=== PATIENT | male | born 1990 | race Caucasian/White ===

== ENCOUNTER → 2021-05-21 07:54 | Outpatient (BNVA) | payer BC, SELFPAY | PROVIDERS: PCP Family Medicine; Visit Provider Family Medicine | DX: Z13.220 Encounter for screening for lipoid disorders (principal); F41.0 Panic disorder [episodic paroxysmal anxiety]; Z13.6 Encounter for screening for cardiovascular disorders; F41.1 Generalized anxiety disorder; M94.0 Chondrocostal junction syndrome [Tietze]; Z76.89 Persons encountering health services in other specified circumstances | CPT/HCPCS: 80053; 80061; 84443; 85025 ==

== ENCOUNTER 2022-06-13 21:40 | Emergency (ER) | payer BC, SELFPAY ==
--- NOTE | 2022-06-13 21:41 | XRR_ITS ---
PROCEDURE INFORMATION: Exam: XR Chest Exam date and time: 06/13/2022 9:51 PM Age: 31 years old Clinical indication: Pain; Other: Arrhythmia; Additional info: Cp, m arrhythmia TECHNIQUE: Imaging protocol: Radiologic exam of the chest. Views: 1 view. COMPARISON: No relevant prior studies available. FINDINGS: Lungs: No consolidation. Pleural spaces: No pleural effusion. No pneumothorax. Heart/Mediastinum: No cardiomegaly. Bones/joints: Unremarkable. XR/XR chest 1V portable [id number] IMPRESSION: No acute abnormality demonstrated.
--- NOTE | 2022-06-13 21:42 | ECG_ITS ---
[facility] Test Date: 2022-06-13 Pat Name: Edmond Bradley Department: Room: Gender: Male Plant Operator: : 1990 Requested By: Blanca Diaz Order Number: [id number] Yolie MD: Jose Hansen M.D. Measurements Intervals [place] Rate: 91 P: 68 [place]: 166 QRS: 89 QRSD: 97 T: 42 QT: 330 QTc: 406 Interpretive Statements SINUS RHYTHM WITH SINUS ARRHYTHMIA No previous ECG available for comparison Electronically Signed On 06-14-2022 18:15:52 GAMEROOM TECHNICIAN by Jose Hansen M.D. [id number]
[2022-06-13 21:49] VITALS: BP 154/89; PULSE 74; RESP 16; TEMP 36.8; O2SAT 98; BMI 38.4
[2022-06-14 00:14] LABS: Basophils # 0.1 10^3/uL (0.0-0.1); Basophils % 0.6 %; Eosinophils # 0.1 10^3/uL (0.0-0.8); Eosinophils % 0.5 %; Hematocrit 43.4 % (42.0-52.0); Hemoglobin 14.1 g/dL (11.7-16.6); Lymphocytes # 1.6 10^3/uL (0.8-4.8); Lymphocytes % 16.6 %; Mean Corpuscular HGB Conc 32.5 g/dL (30.0-36.0); Mean Corpuscular Hemoglobin 27.6 pg (28.0-34.0); Mean Corpuscular Volume 85.1 fl (80-94); Mean Platelet Volume 9.8 fL (7.4-10.4); Monocytes # 0.8 10^3/uL (0.2-0.9); Monocytes % 8.1 %; Neutrophils # 6.97 10^3/uL (1.8-7.7); Neutrophils % 73.8 %; Nucleated Red Blood Cells % 0 %; Platelet Count 302 10^3/cmm (130-400); Red Cell Distribution Width 12.4 % (12.1-15.1); White Blood Count 9.5 10^3/uL (4.0-10.0)
[2022-06-14 00:19] LABS: Troponin(5th) Baseline 6 ng/L (0-15)
[2022-06-14 00:24] LABS: Alanine Aminotransferase 22 U/L (0-41); Albumin Level 4.4 g/dL (3.5-5.2); Alkaline Phosphatase 67 U/L (40-130); Anion Gap 12.3 (5-19); Aspartate Amino Transferase 15 U/L (0-40); Blood Urea Nitrogen 11 mg/dL (6-20); Calcium 9.4 mg/dL (8.5-10.5); Carbon Dioxide 30 mmol/L (22-29); Chloride 101 mmol/L (98-107); Globulin 2.3 g/dL (1.3-4.6); Glomerular Filtration Rate 112.8 mL/min (90-130); Glucose 92 mg/dL (65-115); Osmolality Calculated 287 mOsm/kg (285-295); Potassium 4.3 mmol/L (3.5-5.1); Sodium 139 mmol/L (136-145); Total Bilirubin 0.2 mg/dL (0.15-1.2); Total Protein 6.7 g/dL (6.6-8.7)
--- NOTE | 2022-06-14 00:32 | W.ED.ANXIETY ---
HPI - Anxiety General: Chief Complaint: Anxiety Stated Complaint: heart palpitations/arrhythmia Time Seen by Provider: 06/13/22 23:18 History of Present Illness: Patient is a 31-year-old male who comes to the ED with palpitations. Patient has a history of anxiety. 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 He has been trying to get back quick so he has not slept much over the past several days. Today he started having episodes of what he describes as heart palpitations. They are brief and only lasted a second or 2. He notices them when he starts getting sleepy or gets close to falling asleep. Denies any chest pain, back pain, arm pain or shortness of breath. He denies any recent energy drinks or caffeinated beverages. Endorses having anxiety currently. Associated symptoms: Deny chest pain, chills, fever(s), headache(s), nausea, palpitations or vomiting Review of Systems Const: Denies: fever(s), chills or fatigue Eyes: Denies: change in vision or eye discomfort ENMT: Denies: throat pain, odynophagia, nasal discharge or nasal congestion Card: Denies: chest pain, palpitations, edema, swelling of feet/ankles, dyspnea on exertion or orthopnea Resp: Denies: dyspnea, productive cough or non-productive cough GI: Denies: abdominal pain, nausea, vomiting, diarrhea, constipation or hematochezia : Denies: flank pain, difficulty urinating, dysuria or hematuria Musc: Denies: neck pain, back pain or extremity swelling Skin/Breast: Denies: rash or new lesions Neuro: Denies: headache(s), numbness in extremities or weakness in extremities Psych: Reports: anxiety [facility] ED PFSH: Medical History (Updated 06/14/22 @ 01:09 by CECI Camacho) Generalized anxiety disorder with panic attacks No pertinent family history Social History (Updated 05/18/21 @ 08:13 by Mitchell Mai LPN) Smoking and tobacco status: never smoked Alcohol intake: current Alcohol intake frequency: holidays/special occasions only Physical Exam Const: COMMON NORMALS: no acute distress, patient oriented x3 and alert GENERAL APPEARANCE: cooperative and comfortable HENMT: COMMON NORMALS: normocephalic HEAD & SCALP: normocephalic MOUTH: Normal oral and palatal mucosa present THROAT: posterior oropharynx normal and uvula midline Neck/C-Spine: COMMON NORMALS: supple GENERAL: Yes normal visual inspection Resp: COMMON NORMALS: normal respiratory effort, No retractions, No use of accessory muscles and clear to auscultation bilaterally AUSCULTATION: clear to auscultation bilaterally Cardio: COMMON NORMALS: regular rate, regular rhythm, S1 normal heart sound present, S2 normal heart sound present, No gallops present (Cardio), No clicks present (Cardio), No murmurs present (Cardio) and Peripheral pulses 2+ throughout RATE: regular rate RHYTHM: regular rhythm HEART SOUNDS: S1 normal heart sound present and S2 normal heart sound present PERIPHERAL PULSES: Peripheral pulses 2+ throughout GI: COMMON NORMALS: Normal to inspection, nondistended, normoactive bowel sounds present, Soft to palpation, non-tender and no masses PALPATION: Yes Soft to palpation : COMMON NORMALS: Yes no CVA tenderness BLADDER/KIDNEY EXAM: Yes no CVA tenderness Back/Pelvis: COMMON NORMALS: no CVA tenderness Extremity: COMMON NORMALS: normal to inspection Neuro: COMMON NORMALS: patient oriented x3 SENSORIUM/ORIENTATION: Yes alert GAIT: Yes Normal gait present Skin: GENERAL SKIN EXAM: dry skin Course Vital Signs: Vital signs: Vital Signs Temperature 98.2 F 06/13/22 21:49 Pulse Rate 60 06/14/22 00:46 Respiratory Rate 16 06/14/22 00:46 Blood Pressure 139/90 06/14/22 00:46 Pulse Oximetry 95 06/14/22 00:46 Oxygen Delivery Me thod 06/13/22 21:49 MDM - Anxiety Medical Decision Making Patient is a 31-year-old male who comes to the ED with palpitations. Patient has a history of anxiety. 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 He has been trying to get back quick so he has not slept much over the past several days. Today he started having episodes of what he describes as heart palpitations. They are brief and only lasted a second or 2. He notices them when he starts getting sleepy or gets close to falling asleep. Denies any chest pain, back pain, arm pain or shortness of breath. He denies any recent energy drinks or caffeinated beverages. Endorses having anxiety currently. Vitals are stable. Exam of patient is benign and he appears nontoxic and in no acute distress or pain. Labs are unremarkable. Chest x-ray shows no acute findings. Troponin negative. EKG shows normal sinus rhythm with no other acute findings noted. No palpitations captured here in the ED. Patient was diagnosed with palpitations and acute anxiety which is likely due to little amount of sleep over the past several days. He was sent home with a dose of Vistaril to help with acute anxiety tonight. He was discharged home with a prescription for Vistaril and told to follow-up with his PCP within the next week for reevaluation. Return to ED precautions given. Patient understood and agreed with plan. Lab Data I reviewed the patient's lab results. 06/13/2206/13/22 Radiology Impressions Chest X-Ray 06/13/22 21:41 IMPRESSION: No acute abnormality demonstrated. Laboratory Results WBC 9.5 10^3/uL (4.0-10.0) 06/13/22 RBC 5.10 10^6/uL (4.1-5.3) 06/13/22 Hgb 14.1 g/dL (11.7-16.6) 06/13/22 Hct 43.4 % (42.0-52.0) 06/13/22 MCV 85.1 fl (80-94) 06/13/22 MCH 27.6 pg (28.0-34.0) L 06/13/22 MCHC 32.5 g/dL (30.0-36.0) 06/13/22 RDW 12.4 % (12.1-15.1) 06/13/22 Plt Count 302 10^3/cmm (130-400) 06/13/22 MPV 9.8 fL (7.4-10.4) 06/13/22 Neut % (Auto) 73.8 % 06/13/22 Lymph % (Auto) 16.6 % 06/13/22 [place] % (Auto) 8.1 % 06/13/22: Eos % (Auto) 0.5 % 06/13/22 Baso % (Auto) 0.6 % 06/13/22: Neut # (Auto) 6.97 10^3/uL (1.8-7.7) 06/13/22: Lymph # (Auto) 1.6 10^3/uL (0.8-4.8) 06/13/22: [place] # (Auto) 0.8 10^3/uL (0.2-0.9) 06/13/22: Eos # (Auto) 0.1 10^3/uL (0.0-0.8) 06/13/22: Baso # (Auto) 0.1 10^3/uL (0.0-0.1) 06/13/22 Nucleated RBC % (auto) 0 % 06/13/22 Nucleated RBCs # 0.0 /100WBC 06/13/22: Sodium 139 mmol/L (136-145) 06/13/22: Potassium 4.3 mmol/L (3.5-5.1) 06/13/22: Chloride 101 mmol/L (98-107) 06/13/22: Carbon Dioxide 30 mmol/L (22-29) H 06/13/22: Anion Gap 12.3 (5-19) 06/13/22: BUN 11 mg/dL (6-20) 06/13/22: Creatinine 0.8 mg/dL (0.7-1.2) 06/13/22 GFR Calculation 112.8 mL/min (90-130) 06/13/22: Glucose 92 mg/dL (65-115) 06/13/22 Calculated Osmolality 287 mOsm/kg (285-295) 06/13/22 Calcium 9.4 mg/dL (8.5-10.5) 06/13/22 Total Bilirubin 0.2 mg/dL (0.15-1.2) 06/13/22: AST 15 U/L (0-40) 06/13/22: ALT 22 U/L (0-41) 06/13/22: Alkaline Phosphatase 67 U/L (40-130) 06/13/22 23:27 Troponin T Baseline 6 ng/L (0-15) 06/13/22 23:27 Total Protein 6.7 g/dL (6.6-8.7) 06/13/22 23:27 Albumin 4.4 g/dL (3.5-5.2) 06/13/22 23:27 Globulin 2.3 g/dL (1.3-4.6) 06/13/22 23:27 EKG Data EKG 1: EKG interpretation date: 06/13/22 Interpretation: Chest X-Ray 06/13/22 21:41 IMPRESSION: No acute abnormality demonstrated. EKG shows normal sinus rhythm, 91 bpm, no ST segment elevation or depression seen. Other EKG comments: Chest X-Ray 06/13/22 21:41 IMPRESSION: No acute abnormality demonstrated. Discharge Plan Discharge Patient Disposition: Home Clinical Impression: Acute anxiety, Palpitations Condition: Stable Prescriptions: New hydroxyzine pamoate 50 mg capsule 50 mg PO Q8H PRN (Reason: Acute anxiety) Qty: 20 0RF No Action buspirone 5 mg tablet 5 mg PO TID PRN (Reason: anxiety ) Qty: 30 2RF hydroxyzine HCl 10 mg tablet 10 mg PO TID PRN (Reason: itching) Qty: 30 2RF prednisone 20 mg tablet 40 mg PO DAILY Qty: 10 0RF ciprofloxacin-dexamethasone [Ciprodex] 0.3-0.1 % drops,suspension 4 drp otic (ear) BID Qty: 7.5 0RF Discharge Orders: Discharge ED (Routine); Ordered 06/14/22 Ordered By: Camilo Almanza Referrals: Yohan Grimes DO [Primary Care Provider] - Discharge Diet: Regular Discharge Activity: Increase activity as tolerated Patient Instructions: Heart Palpitations (DC), Anxiety (ED) Activity Restrictions/Additional Instructions: Follow-up with medical provider as directed in the next 5 to 7 days for reevaluation. Talk with your primary care doctor about possibly getting a Holter monitor if you keep having palpitations. Take medications as prescribed. Return to the ER or your medical provider if condition worsens. Please read and understand discharge instructions. Thank you for choosing [facility] for your healthcare needs today. Please realize this is an emergency room and that we are providing you with a medical screening exam and this may not be complete and all inclusive of all the testing and or work up that you may need to determine your ailment or severity of your illness. It is very important that you follow up as instructed or that you return to the Emergency Department should you have concerns or if your condition changes or worsens in any way. Coding Level of Care Code ED Lithograph Press Operator Tinware for Rodri Jain
[2022-06-14 00:46] VITALS: BP 139/90; PULSE 60; RESP 16; O2SAT 95
== END 2022-06-14 00:46 | disposition home or self-care (01) ==
PROVIDERS: Emergency Medicine; Emergency Provider Physician Assistant; PCP Family Medicine
DX: F41.9 Anxiety disorder, unspecified (principal); R00.2 Palpitations
CPT/HCPCS: 71045; 80053; 84484; 85025; 93005; 99285

== ENCOUNTER 2024-01-31 11:30 | Emergency (ER) | payer BC, SELFPAY ==
[2024-01-31 11:33] VITALS: BP 161/82; PULSE 101; RESP 16; TEMP 36.8; O2SAT 99; BMI 35.8
--- NOTE | 2024-01-31 11:46 | ECG_ITS ---
[facility] Test Date: 2024-01-31 Pat Name: Edmond Bradley Department: Room: Gender: Male Seasonal Sales Associate: : 1990 Requested By: Fozia Ahumada Order Number: [id number] Yolie MD: Dorcas Fitch M.D. Measurements Intervals [place] Rate: 95 P: 56 [place]: 154 QRS: 83 QRSD: 93 T: 38 QT: 318 QTc: 400 Interpretive Statements SINUS RHYTHM WITH MARKED SINUS ARRHYTHMIA INCOMPLETE RIGHT BUNDLE BRANCH BLOCK [90+ ms QRS DURATION, TERMINAL R IN V1/V2, 40+ ms S IN I/aVL/V4/V5/V6] Compared to ECG 06/13/2022 21:53:56 Incomplete right bundle-branch block now present Electronically Signed On 01-31-2024 22:40:08 CDT by Dorcas Fitch M.D. [id number]
[2024-01-31 12:13] LABS: Basophils # 0.1 10^3/uL (0.0-0.1); Basophils % 0.7 %; Eosinophils # 0.1 10^3/uL (0.0-0.8); Eosinophils % 0.7 %; Hematocrit 46.7 % (37-53); Lymphocytes # 1.9 10^3/uL (0.8-4.8); Lymphocytes % 25.5 %; Mean Corpuscular Hemoglobin 28.7 pg (27-33); Mean Corpuscular Volume 84.3 fl (82-101); Mean Platelet Volume 9.5 fL (7.4-10.4); Monocytes # 0.6 10^3/uL (0.2-0.9); Neutrophils % 64.8 %; Nucleated Red Blood Cells % 0 %; Platelet Count 294 10^3/cmm (157-399); Red Blood Count 5.54 10^6/uL (3.85-5.65); Red Cell Distribution Width 12.1 % (12.1-15.1); White Blood Count 7.54 10^3/uL (3.29-11.43)
[2024-01-31 12:32] LABS: Troponin(5th) Baseline < 6 ng/L (0-15)
[2024-01-31 12:33] LABS: Alanine Aminotransferase 22 U/L (0-41); Alkaline Phosphatase 59 U/L (40-130); Aspartate Amino Transferase 18 U/L (0-40); Blood Urea Nitrogen 12 mg/dL (6-20); Calcium 9.3 mg/dL (8.5-10.5); Carbon Dioxide 27 mmol/L (22-29); Chloride 99 mmol/L (98-107); Creatinine Clr Calc Pharmacy 124.0352; Globulin 2.2 g/dL (1.3-4.6); Glomerular Filtration Rate 77.1 mL/min (90-130); Glucose 112 mg/dL (65-115); Osmolality Calculated 287 mOsm/kg (285-295); Sodium 138 mmol/L (136-145); Total Bilirubin 0.8 mg/dL (0.15-1.2); Total Protein 7.2 g/dL (6.6-8.7)
[2024-01-31 13:39] VITALS: BP 121/83; PULSE 63; RESP 16; TEMP 36.9; O2SAT 99
--- NOTE | 2024-01-31 13:46 | ECG_ITS ---
[facility] Test Date: 2024-01-31 Pat Name: Edmond Bradley Department: Room: Gender: Male Complaint Operator: : 1990 Requested By: Fozia Ahumada Order Number: [id number] Urbano MD: Dorcas Fitch M.D. Measurements Intervals [place] Rate: 60 P: 20 [place]: 155 QRS: 62 QRSD: 94 T: 41 QT: 352 QTc: 354 Interpretive Statements SINUS RHYTHM WITH marked sinus arrhythmia, and OCCASIONAL VENTRICULAR PREMATURE COMPLEXES Compared to ECG 01/31/2024 11:32:08 Ventricular premature complex(es) now present Sinus arrhythmia no longer present Incomplete right bundle-branch block no longer present Electronically Signed On 01-31-2024 22:48:58 CDT by Dorcas Fitch M.D. [id number]
[2024-01-31 14:44] LABS: Troponin 5 2HR 6.34 ng/L (0-15); Troponin 5 2HR Delta 0.34001 ABS# (0-10)
[2024-01-31 14:56] VITALS: BP 148/64; PULSE 68; RESP 16; O2SAT 97
[2024-01-31 15:00] VITALS: BP 148/64; PULSE 68; RESP 16; O2SAT 97
[2024-01-31 15:06] LABS: Bilirubin Urine Negative (Negative); Blood Urine Negative (Negative); Glucose Urine UA Negative (Normal); Ketones Urine 1+ (Negative); Leukocyte Esterase Urine Negative (Negative); Nitrate Urine Negative (Negative); Protein Urine Negative (Negative); Specific Gravity, Urine 1.011 (1.005-1.030); Urine Appearance Clear (CLEAR); Urine Color Yellow (Yellow); Urobilinogen Urine 0.2 mg/dL (Negative); pH Urine 5.5 (5-7)
[2024-01-31 15:08] LABS: Bacteria Urine None Seen /hpf; Hyaline Casts Urine 0-4 /lpf; RBC Urine 0-2 /hpf (0-2); Squamous Epithelial Cell Urine 0-5 /hpf (0-5); WBC Urine 0-5 /hpf (0-5)
[2024-01-31 15:14] LABS: Amphetamines Screen Urine Negative (Negative); Barbiturates Screen Urine Negative (Negative); Benzodiazepines Screen Urine Negative (Negative); Cocaine Screen Urine Negative (Negative); Opiate Screen Urine Negative (Negative); PCP Screen Urine Negative (Negative); THC Screen Urine Negative (Negative)
--- NOTE | 2024-01-31 15:16 | ED_ITS ---
HPI - Dizziness 2 General: Chief Complaint: Dizziness Stated Complaint: Pass out, heart racing, sob Time Seen by Provider: 01/31/24 14:57 History of Present Illness: HPI Narrative: 33-year-old man who says he was at the [employer] [place] [employer] and suddenly felt very lightheaded and his heart was racing. He checked his blood pressure and pulse and they were both elevated. This improved for a while and then when he got to the emergency room it happened again. It is now improved again. He had some tightness in his chest. No nausea or vomiting. No abdominal pain. Related Data Home Medications Medication Instructions Recorded Confirmed No Known Home Medications 01/31/24 01/31/24 Allergies Allergy/AdvReac Type Severity Reaction Status Date / Time No Known Allergies Allergy Verified 05/18/21 08:13 Review of Systems 2 Narrative: Constitutional symptoms: Negative except as documented in HPI. Skin symptoms: Negative except as documented in HPI. Eye symptoms: Negative except as documented in HPI. ENMT symptoms: Negative except as documented in HPI. Respiratory symptoms: Negative except as documented in HPI. Cardiovascular symptoms: Negative except as documented in HPI. Gastrointestinal symptoms: Negative except as documented in HPI. Genitourinary symptoms: Negative except as documented in HPI. Musculoskeletal symptoms: Negative except as documented in HPI. Neurologic symptoms: Negative except as documented in HPI. Psychiatric symptoms: Negative except as documented in HPI. Endocrine symptoms: Negative except as documented in HPI. PFSH ED 2 PFSH: Medical History (Updated 01/31/24 @ 15:15 by Fozia Amato MD) No pertinent family history Generalized anxiety disorder with panic attacks Social History (Updated 05/18/21 @ 08:13 by Mitchell Mai LPN) Smoking and tobacco/nicotine status: never used tobacco/nicotine Alcohol intake: current Alcohol intake frequency: holidays/special occasions only Substance/Drug Use: never Physical Exam 2 Narrative: EXAM NARRATIVE: General: Alert, no acute distress. Skin: Warm, dry. Head: Normocephalic, atraumatic. Neck: Supple, trachea midline. Eye: Extraocular movements are intact. Ears, nose, mouth and throat: mucosa moist. Cardiovascular: Regular, Normal peripheral perfusion. Respiratory: Lungs are clear to auscultation, respirations are non-labored, breath sounds are equal, Symmetrical chest wall expansion. Gastrointestinal: Soft, Nontender, Non distended Musculoskeletal: Normal ROM, no deformity. Neurological: Alert and oriented, No focal neurological deficit observed. Psychiatric: Cooperative, appropriate mood & affect. Course 2 Vital Signs: Vital signs: Vital Signs Temperature 98.4 F 01/31/24 13:39 Pulse Rate 68 01/31/24 15:00 Respiratory Rate 16 01/31/24 15:00 Blood Pressure 148/64 01/31/24 15:00 Pulse Oximetry 97 01/31/24 15:00 Oxygen Delivery Me thod Room Air 01/31/24 15:00 MDM - Dizziness Medical Decision Making Medical decision making: Differential diagnosis including but not limited to and based on the above HPI, review of systems and physical exam: for patient with palpitations: atrial fibrillation with rapid ventricular response. ventricular tachycardia. sinus tachycardia. PVCs. also concern for underlying issues causing tachycardia. Infection, electrolyte abnormalities and thyroid issues Orders placed to evaluate differential diagnosis based on the above differential, HPI and physical exam EKG: Time 1132. Rate 60. Pulmonary arrhythmia, No ST-T changes, normal IA & QRS intervals, This was reviewed and interpreted by myself the ER physician at 1135. Repeat EKG: Time 1352. Rate 60. PVCs. Normal sinus rhythm, No ST-T changes, normal IA & QRS intervals, This was reviewed and interpreted by myself the ER physician at 1358. Rate has decreased and PVCs are now present Lab Review: Laboratory results were reviewed and interpreted by myself the emergency room physician. Lab work is unremarkable. No leukocytosis. No anemia. Serial markers are negative. No renal failure. I reviewed the patient's medical record. Reexamination: Patient remained stable. No increased work of breathing. No altered mental status. No focal motor deficits. Assessment and plan: Palpitations - Discharged home - Discussed plan with patient. Answered any questions. - Evaluation and treatment of this problem were appropriate in the emergency setting. Lab Data 01/31/24 12:03 01/31/24 12:03 Laboratory Results WBC 7.54 10^3/uL (3.29-11.43) 01/31/24 12:03 RBC 5.54 10^6/uL (3.85-5.65) 01/31/24 12:03 Hgb 15.90 g/dL (11.27-16.99) 01/31/24 12:03 Hct 46.7 % (37-53) 01/31/24 12:03 MCV 84.3 fl (82-101) 01/31/24 12:03 MCH 28.7 pg (27-33) 01/31/24 12:03 MCHC 34.0 g/dL (30-55) 01/31/24 12:03 RDW 12.1 % (12.1-15.1) 01/31/24 12:03 Plt Count 294 10^3/cmm (157-399) 01/31/24 12:03 MPV 9.5 fL (7.4-10.4) 01/31/24 12:03 Neut % (Auto) 64.8 % 01/31/24 12:03 Lymph % (Auto) 25.5 % 01/31/24 12:03 [place] % (Auto) 8.0 % 01/31/24 12:03 Eos % (Auto) 0.7 % 01/31/24 12:03 Baso % (Auto) 0.7 % 01/31/24 12:03 Neut # (Auto) 4.90 10^3/uL (1.8-7.7) 01/31/24 12:03 Lymph # (Auto) 1.9 10^3/uL (0.8-4.8) 01/31/24 12:03 [place] # (Auto) 0.6 10^3/uL (0.2-0.9) 01/31/24 12:03 Eos # (Auto) 0.1 10^3/uL (0.0-0.8) 01/31/24 12:03 Baso # (Auto) 0.1 10^3/uL (0.0-0.1) 01/31/24 12:03 Nucleated RBC % (auto) 0 % 01/31/24 12:03 Nucleated RBCs # 0.0 /100WBC 01/31/24 12:03 Sodium 138 mmol/L (136-145) 01/31/24 12:03 Potassium 4.0 mmol/L (3.5-5.1) 01/31/24 12:03 Chloride 99 mmol/L (98-107) 01/31/24 12:03 Carbon Dioxide 27 mmol/L (22-29) 01/31/24 12:03 Anion Gap 16.0 (5-19) 01/31/24 12:03 BUN 12 mg/dL (6-20) 01/31/24 12:03 Creatinine 1.1 mg/dL (0.7-1.2) 01/31/24 12:03 GFR Calculation 77.1 mL/min (90-130) L 01/31/24 12:03 Glucose 112 mg/dL (65-115) 01/31/24 12:03 Calculated Osmolality 287 mOsm/kg (285-295) 01/31/24 12:03 Calcium 9.3 mg/dL (8.5-10.5) 01/31/24 12:03 Total Bilirubin 0.8 mg/dL (0.15-1.2) 01/31/24 12:03 AST 18 U/L (0-40) 01/31/24 12:03 ALT 22 U/L (0-41) 01/31/24 12:03 Alkaline Phosphatase 59 U/L (40-130) 01/31/24 12:03 Troponin T Baseline < 6 ng/L (0-15) 01/31/24 12:03 Troponin T 120 Minute 6.34 ng/L (0-15) 01/31/24 14:16 Delta Troponin T 0.08832 ABS# (0-10) 01/31/24 14:16 Total Protein 7.2 g/dL (6.6-8.7) 01/31/24 12:03 Albumin 5.0 g/dL (3.5-5.2) 01/31/24 12:03 Globulin 2.2 g/dL (1.3-4.6) 01/31/24 12:03 Urine Color Yellow (Yellow) 01/31/24 15:00 Urine Appearance Clear (CLEAR) 01/31/24 15:00 Urine pH 5.5 (5-7) 01/31/24 15:00 Ur Specific [place] 1.011 (1.005-1.030) 01/31/24 15:00 Urine Protein Negative (Negative) 01/31/24 15:00 Urine Glucose (UA) Negative (Normal) 01/31/24 15:00 Urine Ketones 1+ (Negative) H 01/31/24 15:00 Urine Blood Negative (Negative) 01/31/24 15:00 Urine Nitrate Negative (Negative) 01/31/24 15:00 Urine Bilirubin Negative (Negative) 01/31/24 15:00 Urine Urobilinogen 0.2 mg/dL (Negative) 01/31/24 15:00 Ur Leukocyte Esterase Negative (Negative) 01/31/24 15:00 Urine RBC 0-2 /hpf (0-2) 01/31/24 15:00 Urine WBC 0-5 /hpf (0-5) 01/31/24 15:00 Ur Squamous Epith Cells 0-5 /hpf (0-5) 01/31/24 15:00 Amorphous Sediment Not Reportable 01/31/24 15:00 Urine Bacteria None seen /hpf (NONE) 01/31/24 15:00 Hyaline Casts 0-4 /lpf H 01/31/24 15:00 Urine Opiates Screen Negative ng/mL (Negative) 01/31/24 15:00 Ur Barbiturates Screen Negative ng/mL (Negative) 01/31/24 15:00 Ur Phencyclidine Scrn Negative ng/mL (Negative) 01/31/24 15:00 Ur Amphetamines Screen Negative ng/mL (Negative) 01/31/24 15:00 U Benzodiazepines Scrn Negative ng/mL (Negative) 01/31/24 15:00 Urine Cocaine Screen Negative ng/mL (Negative) 01/31/24 15:00 U Marijuana (THC) Screen Negative ng/mL (Negative) 01/31/24 15:00 No radiology studies performed this visit Discharge Plan Discharge Patient Disposition: Home Clinical Impression: Near syncope, Palpitations, Anxiety Condition: Stable Discharge Orders: Discharge ED (Routine); Ordered 01/31/24 Ordered By: Fozia Amato Referrals: Yohan Grimes DO [Primary Care Provider] - Discharge Diet: Usual diet Discharge Activity: Increase activity as tolerated Patient Instructions: Near Syncope (ED) Activity Restrictions/Additional Instructions: Thank you for choosing [facility] for your healthcare needs today. Please realize this is an emergency room and that we are providing you with a medical screening exam and this may not be complete and all inclusive of all the testing and or work up that you may need to determine your ailment or severity of your illness. You have been screened and evaluated and felt safe for discharge. Health conditions do change or evolve sometimes and as such it is important that you follow up with your Primary Doctor to be re checked, 3-5 days is a general good time frame for follow up. You are always welcome to return to the ED for re assessment if your symptoms are worsening or you have new concerns Coding Level of Care Code ED Qc Tech for Rodri Jain
[2024-01-31 15:23] VITALS: BP 146/62; PULSE 66; O2SAT 98
== END 2024-01-31 15:25 | disposition home or self-care (01) ==
PROVIDERS: Emergency Provider Emergency Medicine; PCP Family Medicine
DX: R55 Syncope and collapse (principal); R00.2 Palpitations; F41.9 Anxiety disorder, unspecified
CPT/HCPCS: 36415; 80053; 80306; 81001; 84484; 85025; 93005; 99284

== ENCOUNTER 2025-01-24 11:27 | Outpatient (CLI) | payer OTHER, SELFPAY ==
--- NOTE | 2025-01-24 11:36 | XR_ITS ---
WS: [id number] XR cervical spine fl/ex [id number] REASON FOR EXAM: NUMBNESS AND TINGLING IN LEFT ARM FINDINGS: Straightening of the normal lordosis of the cervical spine in the neutral position. There is a bony abnormality which appears to involve the posterior superior body of T1 with extension through a pedicle pedicle into a superior articulating facet. Complex groundglass and lucent areas with mildly thickened sclerotic margins. No AP view to confirm or determine laterality. Incompletely evaluated. Intervertebral disc spaces are intact and relatively well preserved. No significant neutral listhesis. No development of listhesis during flexion or extension. Normal facet joints. XR/XR cervical spine fl/ex [id number] IMPRESSION: Alteration of cervical spine curvature. Bone lesion of T1 likely benign. CT scan of the cervical thoracic junction amie mmended. May require subsequent MRI.
--- NOTE | 2025-01-24 11:38 | XR_ITS ---
WS: [email or web address] XR thoracic spine 2V [id number] REASON FOR EXAM: NUMBNESS AND TINGLING IN THE LEFT ARM FINDINGS: No significant vertebral body compression deformity. The T1 abnormality suspected on the cervical spine series is not further evaluated with the study as T1 on the lateral is overlapped by multiple bony structures and the AP view is on the edge of the image. Thoracic disc spaces are intact and relatively well preserved with minimal endplate sclerosis and osteophytosis in the lower thoracic spine. XR/XR thoracic spine 2V [id number] IMPRESSION: Suspected T1 bone lesion not demonstrated on this examination. Mild degenerative spondylosis.
== END 2025-01-24 11:28 | disposition home or self-care (01) ==
LOC: RAD 11:31
PROVIDERS: PCP Nurse Practitioner Family; Visit Provider Nurse Practitioner Family
DX: R20.2 Paresthesia of skin (principal); M54.2 Cervicalgia; M47.894 Other spondylosis, thoracic region
CPT/HCPCS: 72040; 72070